=== PATIENT | female | born 1995 ===

== ENCOUNTER 2018-07-22 11:04 | Emergency (ER) | payer OTHER ==
[2018-07-22 11:13] VITALS: RESP 18; O2SAT 100
--- NOTE | 2018-07-22 12:23 | RAD ---
HISTORY: fever/congestion/cough COMPARISON: Chest x-ray performed 04/30/18 TECHNIQUE: Chest PA and lateral, 2 views FINDINGS: LUNGS: Faint opacity within the right middle lobe may reflect atelectasis or infiltrate. Correlate clinically. Please note that chest x-ray has limited sensitivity for the detection of pulmonary masses. PLEURA: No significant pleural effusion identified. No definite pneumothorax . CARDIOVASCULAR: The cardiomediastinal silhouette appears within normal limits of size. No atherosclerotic calcification present. OSSEOUS STRUCTURES: No acute osseous abnormality identified. VISUALIZED UPPER ABDOMEN: Unremarkable. OTHER FINDINGS: None. IMPRESSION: Faint opacity within the right middle lobe may reflect atelectasis or infiltrate. Correlate clinically.
--- NOTE | 2018-07-22 12:47 | C.PDOC ---
History Of Present Illness 23 y/o female presents to the ER complaining of subjective fever, dry cough, sore throat, and body aches which have been present for the past 3 days.Patient states that she is taking Tylenol and her last dose was yesterday. Patient reports that her brother has similar symptoms but as not serious. Denies having nausea,vomiting, and abdominal pain. Time Seen by Provider: 07/22/18 11:27 Chief Complaint (Nursing): Cough, Cold, Congestion History Per: Patient History/Exam Limitations: no limitations Onset/Duration Of Symptoms: Days Current Symptoms Are (Timing): Still Present Severity: Moderate Past Medical History Reviewed: Historical Data, Nursing Documentation, Vital Signs Vital Signs: Last Vital Signs Temp 99.3 F 07/22/18 11:12 Pulse 68 07/22/18 11:12 Resp 18 07/22/18 11:12 BP 119/79 07/22/18 11:12 Pulse Ox 100 07/22/18 11:12 - Medical History PMH: No Chronic Diseases Surgical History: No Surg Hx Family History: States: No Known Family Hx - Social History Hx Alcohol Use: No Hx Substance Use: No - Immunization History Hx Tetanus Toxoid Vaccination: No Review Of Systems Except As Marked, All Systems Reviewed And Found Negative. Constitutional: Positive for: Fever (subjective fever), Malaise. Negative for: Chills ENT: Positive for: Throat Pain Cardiovascular: Negative for: Chest Pain Respiratory: Positive for: Cough (dry cough). Negative for: Shortness of Breath Gastrointestinal: Negative for: Nausea, Vomiting, Abdominal Pain Physical Exam - Physical Exam Appears: Non-toxic, No Acute Distress Skin: Normal Color, Warm, Dry Head: Atraumatic, Normacephalic Eye(s): bilateral: Normal Inspection Ear(s): Bilateral: Normal Nose: Normal Oral Mucosa: Moist Throat: Normal, No Erythema, No Exudate Neck: Supple Chest: Symmetrical Cardiovascular: Rhythm Regular Respiratory: Normal Breath Sounds, No Rales, No Rhonchi, No Wheezing Neurological/Psych: Oriented x3, Normal Speech ED Course And Treatment O2 Sat by Pulse Oximetry: 100 (RA) Pulse Ox Interpretation: Normal - Other Rad CXR X-Ray: Viewed By Me, Read By Radiologist Interpretation: HISTORY: fever/congestion/cough. COMPARISON: Chest x-ray performed 2/5/19. TECHNIQUE: Chest PA and lateral, 2 views. FINDINGS: LUNGS: Faint opacity within the right middle lobe may reflect atelectasis or infiltrate. Correlate clinically. Please note that chest x-ray has limited sensitivity for the detection of pulmonary masses. PLEURA: No significant pleural effusion identified. No definite pneumothorax . CARDIOVASCULAR: The cardiomediastinal silhouette appears within normal limits of size. No atherosclerotic calcification present. OSSEOUS STRUCTURES: No acute osseous abnormality identified. VISUALIZED UPPER ABDOMEN: Unremarkable. OTHER FINDINGS: None. IMPRESSION: Faint opacity within the right middle lobe may reflect atelectasis or infiltrate. Correlate clinically. Progress Note: CXR, Flu Swab, and POC Test. Flu Swab is positive for Flu B.Patient treated with Tamiflu PO. Patient has been discharged and instructed to follow up with PMD. Disposition - Disposition Referrals: [facility] [Outside] Disposition: HOME/ ROUTINE Disposition Time: 12:45 Condition: STABLE Additional Instructions: Follow up with PMD / clinic within 1-2 days. Return to ED if feel worse. 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 - Scribe Statement The provider has reviewed the documentation as recorded by the Cali Morrison Provider Attestation All medical record entries made by the Cali were at my direction and personally dictated by me. I have reviewed the chart and agree that the record accurately reflects my personal performance of the history, physical exam, medical decision making, and the department course for this patient. I have also personally directed, reviewed, and agree with the discharge instructions and disposition.
[2018-07-22 13:19] VITALS: BP 108/68; PULSE 82; TEMP 98.2
== END 2018-07-22 13:19 | disposition home or self-care (01) ==
LOC: C.ER 11:04
DX: J10.1 Influenza due to other identified influenza virus with other respiratory manifestations (principal)